=== PATIENT | female | born 1955 | race Caucasian/White ===

== ENCOUNTER 2019-02-17 15:17 | Outpatient (CLI) | payer OTHER ==
--- NOTE | 2019-02-17 16:01 | RAD ---
EXAM: XR Lumbar Spine Comp W Bending PROVIDED CLINICAL HISTORY: Low back pain. Bilateral leg numbness. COMPARISON: None FINDINGS: 6 views lumbar spine are provided. There is transitional vertebra at the lumbosacral junction. The ve rtebral body heights are within normal limits. No fracture or subluxation is seen involving the lumbar spine. Mild facet degenerative changes in the lower lumbar spine. IMPRESSION: Mild degenerative changes in lumbar spine without fracture or subluxation appreciated.
== END 2019-02-17 15:18 | disposition home or self-care (01) ==
LOC: BICRAD 15:17
PROVIDERS: ATTEND Family Medicine
DX: M54.5 Low back pain (principal); M47.816 Spondylosis without myelopathy or radiculopathy, lumbar region
CPT/HCPCS: 72100

== ENCOUNTER 2019-04-07 08:57 | Outpatient (CLI) | payer OTHER ==
--- NOTE | 2019-04-07 10:07 | MRI ---
LUMBAR SPINE MRI WITHOUT IV CONTRAST: HISTORY: Lumbar spine MRI without IV contrast. HISTORY: Degenerative disk disease. Low back pain with bilateral foot and leg numbness. FINDINGS: Conus medullaris region is unremarkable terminating at L1. Mild generalized disk desiccation changes and ligament and facet hypertrophic changes. T12-L1 disk: Unremarkable. L1-L2 disk: Unremarkable. L2-L3 disk: Unremarkable. L3-L4 disk: Unremarkable. L4-L5 disk: Unremarkable. L5-S1 disk: Mild disk bulging with some desiccation changes without significant canal, lateral reces s, or foraminal stenosis. No abnormal marrow signal. IMPRESSION: Unremarkable lumbar spine MRI. Disk desiccation changes and ligament and facet hypertrophic changes most marked at L5-S1 without canal, lateral recess, or foraminal stenosis. POS: TPC
== END 2019-04-07 08:58 | disposition home or self-care (01) ==
LOC: BICMRI 08:57
PROVIDERS: ATTEND Family Medicine
DX: M51.36 Other intervertebral disc degeneration, lumbar region (principal); M47.817 Spondylosis without myelopathy or radiculopathy, lumbosacral region; M51.27 Other intervertebral disc displacement, lumbosacral region
CPT/HCPCS: 72148

== ENCOUNTER 2019-05-26 13:39 | Outpatient (CLI) | payer OTHER ==
--- NOTE | 2019-05-26 20:16 | MRI ---
THORACIC SPINE MRI WITHOUT CONTRAST: 05/26/19 COMPARISON: None. HISTORY: Thoracic radiculitis. TECHNIQUE: multiplanar and multisequence MRI imaging of the thoracic spine obtained without contrast. FINDINGS: There is a 3.1 x 1.5 x 1.2 cm mass lesion centered at the T2 level. This mass appears intradural and extramedullary, with the thoracic cord demonstrating severe compression and displacement to the left. This mass lesion is isointense on T1 and T2 weighted imaging. No additional lesion is identified. No significant neural foraminal stenosis is seen at any level on either side. Sagittal STIR imaging demonstrates no focal area of osseous marrow edema. There is no anterolisthesis or retrolisthesis identified. IMPRESSION: T1 and T2 isointense mass lesion within the thoracic spine centered at the T2 level deviating the cor d to the left and severely compressing the cord. This is felt to represent an intradural extramedull samir tumor, favored to represent a meningioma. Recommend postcontrast imaging for full assessment. Code T POS: OFF
== END 2019-05-26 13:40 | disposition home or self-care (01) ==
LOC: BICMRI 13:39
PROVIDERS: ATTEND Specialist
DX: M54.14 Radiculopathy, thoracic region (principal); G95.9 Disease of spinal cord, unspecified
CPT/HCPCS: 72146

== ENCOUNTER 2019-06-11 05:41 | Inpatient (IN) | payer OTHER ==
[2019-06-11] MEDS ORDERED: ceFAZolin Sodium (SDC) 2 GM/100 ML BAG ONE (06:40)
[2019-06-11] MEDS ORDERED: Bacitracin Zinc Ointment 30 gm TUBE ONE (06:43)
[2019-06-11 06:48] LABS: #Eosinphils 0.2 thou/uL (0.0-0.7); #Lymphocytes 3.9 thou/uL (1.20-3.40); #Neutrophils 11.7 thou/uL (1.40-6.50); %Basophils 0.3 % (0.0-1.0); %Eosinophils 1.1 % (0.0-10.0); %Lymphocytes 23.4 % (21.0-51.0); %Monocytes 5.7 % (0.0-10.0); %Neutrophils 69.5 % (42.0-75.0); Hemoglobin 12.4 g/dL (12.0-16.0); Mean Corpuscular HGB CONC 34.3 g/dL (32.0-36.0); Mean Corpuscular Volume 87.4 fL (78.0-98.0); Mean Platelet Volume 7.2 fL (7.4-10.4); Platelet Count 347 thou/uL (130-400); RBC Distribution Width 12.6 % (11.5-14.5); Red Blood Cell (RBC) Count 4.12 mill/uL (4.20-5.40); White Blood Cell (WBC) Count 16.8 thou/uL (4.8-10.8)
[2019-06-11 07:05] LABS: Anion Gap 13 mmol/L (10-20); BUN (Urea Nitrogen) 22 mg/dL (9.8-20.1); Calc. Creatinine Clearance 0 mL/min (70-130); Calcium 9.9 mg/dL (7.8-10.44); Carbon Dioxide 25 mmol/L (23-31); Chloride 104 mmol/L (98-107); Estimated GFR-MDRD 84; Glucose 93 mg/dL (80-115); Potassium 4.1 mmol/L (3.5-5.1); Sodium 138 mmol/L (136-145)
[2019-06-11] MEDS ORDERED: SUGAMMADEX SODIUM 200 MG/2 ML VIAL ONE (07:11)
[2019-06-11] MEDS ORDERED: Fentanyl 250 MCG/5 ML VIAL ONE (07:11)
[2019-06-11] MEDS ORDERED: Phenylephrine HCL 10 MG/ML VIAL ONE (07:11)
[2019-06-11] MEDS ORDERED: Albumin 5% 500 ML ONE (07:12)
[2019-06-11] MEDS ORDERED: Ketamine 50 MG/ML (10ML VIAL) ONE (07:27)
[2019-06-11] MEDS ORDERED: Fentanyl 100 MCG/2 ML VIAL ONE ×2 (09:46→12:26)
[2019-06-11] MEDS ORDERED: Metoclopramide HCl 10 MG/2 ML VIAL ONE (10:08)
[2019-06-11] MEDS ORDERED: PROPOFOL 200 MG/20 ML VIAL ONE (10:08)
[2019-06-11] MEDS ORDERED: Dexamethasone 20 MG/5 ML VIAL ONE (10:08)
[2019-06-11] MEDS ORDERED: Rocuronium Bromide 10 MG/ML (10ML VIAL) ONE (10:08)
[2019-06-11] MEDS ORDERED: Vecuronium 10 MG VIAL ONE (10:08)
[2019-06-11] MEDS ORDERED: Ondansetron PF 4 MG/2 ML Vial ONE (10:08)
[2019-06-11] MEDS ORDERED: PHENYLEPHRINE-NS 100 MCG/ML 10 ML SYRINGE ONE (10:08)
[2019-06-11] MEDS ORDERED: Glycopyrrolate 0.2 MG/ML 5 ML SYRINGE ONE (10:08)
[2019-06-11] MEDS ORDERED: Lidocaine 1% PF 5 ML VIAL ONE (10:08)
[2019-06-11] MEDS ORDERED: PACU-Morphine 4MG/ML VIAL SLOW IVP PRN (11:16)
[2019-06-11] MEDS ORDERED: Promethazine HCl 25 MG/ML VIAL SLOW IVP PRN (11:16)
[2019-06-11] MEDS ORDERED: HYDROmorphone 2 MG/ML VIAL SLOW IVP PRN (11:16)
[2019-06-11] MEDS ORDERED: Morphine Sulfate 2 MG/ML SYRINGE SLOW IVP PRN (11:16)
[2019-06-11] MEDS ORDERED: Promethazine HCl 25 MG/ML VIAL IM PRN ×2 (11:16→13:41)
[2019-06-11] MEDS ORDERED: Ondansetron HCl/PF 4 MG/2 ML Vial IVP PRN (11:16)
[2019-06-11] MEDS ORDERED: HYDROmorphone 2 MG/ML VIAL ONE (12:02)
[2019-06-11] MEDS ORDERED: Ondansetron PF 4 MG/2 ML Vial IM PRN (13:41)
[2019-06-11] MEDS ORDERED: Promethazine 25 MG TAB PO PRN (13:41)
[2019-06-11] MEDS ORDERED: Mag-Al 1200 mg/1200 mg/30 ML UDCUP PO PRN (13:41)
[2019-06-11] MEDS ORDERED: diphenhydrAMINE 25 MG CAP PO PRN (13:41)
[2019-06-11] MEDS ORDERED: diphenhydrAMINE 50 MG/ML VIAL IVP PRN (13:41)
[2019-06-11] MEDS ORDERED: Morphine 4 MG/ML VIAL SLOW IVP PRN (13:41)
[2019-06-11] MEDS ORDERED: HYDROcodone/Acetaminophen 10/325 mg Tablet PO PRN (13:41)
[2019-06-11 13:49] VITALS: BMI 22.9
[2019-06-11] MEDS: Sodium Chloride 0.9% 1,000 ML IV SCH (14:01)
[2019-06-11] MEDS: CEFAZOLIN 2 GM in Premix Bag 1 BAG IVPB SCH ×2 (14:17→21:47)
--- NOTE | 2019-06-11 15:47 | OP ---
DATE OF PROCEDURE: 06/11/2019 DESIGN TECH: Sonia West PA-C PROCEDURES PERFORMED: C7 through T3 laminectomy, removal of spinal cord tumor. DESCRIPTION OF PROCEDURE: The patient was brought to the operating room and intubated. She was rolled in a prone position on gel-filled chest rolls. Her head was fixed in a Mariaelena sewer head in neutral position. An incision was made in the midline exposing C6 through T4 and her level was confirmed by x-ray. We performed complete T3, complete T2, complete T1, and complete T7 laminectomies. There was extensive venous epidural bleeding throughout the case, presumably related to distention from the tumor. The epidural venous bleeding was quite difficult to control, ultimately controlled with a combination of coagulation and Gelfoam. Next, the dura was opened in the midline and the tumor was immediately evident. We circumferentially went around the tumor, debulking it and it did have a dural attachment posterolaterally. It was not emanating from any nerves and no nerves were sacrificed in the course of removal. The tumor was removed in its entirety and sent for pathologic examination. The dural attachment was extensively coagulated. The intradural space was then extensively irrigated and the dura was closed in watertight fashion with a running Prolene suture. This was reinforced with DuraSeal fibrin sealant. Next, the wound was extensively irrigated and MAC hemostasis was secured. Vancomycin powder was applied and the wound was then closed in anatomic layers. Job ID: [id number]
[2019-06-11] MEDS: Dexamethasone 4 MG TAB PO SCH ×3 (16:39→23:43)
[2019-06-11] MEDS: traMADol HCl 50 MG TAB PO PRN (17:16)
[2019-06-11] MEDS: Dexamethasone 4 mg/ml Vial SLOW IVP SCH ×2 (17:16→23:30)
--- NOTE | 2019-06-11 17:28 | CON ---
DATE OF CONSULTATION: 06/11/2019 HISTORY OF PRESENT ILLNESS: Ms. Bagley is a 63-year-old female, who underwent a C7-T3 laminectomy today with removal of a tumor. She is transferred to the critical care unit for observation. She is still very somnolent from surgery when I evaluated her. PAST MEDICAL HISTORY: Unknown. FAMILY HISTORY: Unknown. SOCIAL HISTORY: Unknown. REVIEW OF SYSTEMS: 10 point review of systems completed, not accurately obtainable at this point. PHYSICAL EXAMINATION: GENERAL: She is in no distress. As mentioned, somnolent. VITAL SIGNS: She is afebrile. Heart rate 53, respiratory rate was in the teens , and blood pressure 113/62. NECK: She had no anterior cervical lymphadenopathy. Her trachea is in the midline. HEENT: pupils react. LUNGS: Clear. HEART: Regular rhythm. S1 and S2 are normal. ABDOMEN: Soft and nontender without masses. EXTREMITIES: Without clubbing, cyanosis, or edema. LABORATORY DATA: White count 16.8, hemoglobin 12.4, platelets 347. Electrolytes are normal. Glucose was 93 and calcium 9.9. IMPRESSION: Status post resection of a spinal tumor with a C7 to T3 laminectomy. PLAN: She appears stable currently in the Critical Care Unit. We will be happy to follow while she is in the ICU. This is a 70 minute consult, with greater than 50% of time spent on unit coordinating care. Job ID: [id number] MTDD
[2019-06-11] MEDS: HYDROcodone/Acetaminophen 10/325 mg Tablet PO PRN ×2 (20:22→23:25)
[2019-06-12] MEDS: Dexamethasone 4 mg/ml Vial SLOW IVP SCH ×2 (00:12→06:19)
[2019-06-12] MEDS: Sodium Chloride 0.9% 1,000 ML IV SCH ×2 (02:30→17:57)
[2019-06-12] MEDS: HYDROcodone/Acetaminophen 10/325 mg Tablet PO PRN ×4 (03:04→20:39)
[2019-06-12] MEDS: CEFAZOLIN 2 GM in Premix Bag 1 BAG IVPB SCH ×3 (05:04→21:59)
[2019-06-12] MEDS: Dexamethasone 4 MG TAB PO SCH ×4 (05:05→21:58)
[2019-06-12] MEDS: Famotidine/PF 20 mg/2ml Vial SLOW IVP SCH ×2 (08:33→21:59)
--- NOTE | 2019-06-12 08:54 | PRG ---
DATE OF SERVICE: 06/12/2019 SUBJECTIVE: The patient is a 63-year-old female who was recently found in our office to have a large spinal tumor intradural extramedullary at the approximately T3 level. She underwent C7 through T3 laminectomy with resection of the spinal cord tumor. She is now postoperative day #1. She was transferred to the ICU and monitored closely overnight. She reports she is having some dysesthesias in the right leg and slight weakness. She was able to stand at the side of the bed on her own without any difficulty. She initially had some difficulty urinating, but this has improved overnight, and she is now urinating without any difficulty. She was able to tolerate a small amount of Jell-O p.o. last night and reports she feels like she can try to eat breakfast this morning. She reports some pain across the top of the shoulders and posterior cervical spine region, but this is well controlled with p.o. [place]. She had approximately 130 out from the JUSTYNA last night. There is some dark red blood, currently in the . Incision is otherwise not having any issues. OBJECTIVE: GENERAL: On exam this morning, the patient is awake, alert, in no acute distress. EXTREMITIES: She has free active range of motion of the upper extremities and 5/5 strength throughout. In the lower extremities, she is slightly weak over the right proximal leg, but she is able to lift this and dorsiflex, plantar flex, flex and extend the knee without any significant difficulty. Incision is clean, dry, and intact. The patient is doing well, and I plan to transition her to the Med/Surg floor today. I will begin to taper her Decadron, and I will change it over to p.o. dosing. We will continue physical therapy, occupational therapy, and I placed a Rehab screen. I anticipate the need for inpatient rehab at discharge. Job ID: [id number]
--- NOTE | 2019-06-12 09:00 | PRG ---
DATE OF SERVICE: 06/12/2019 SUBJECTIVE: Yany Bagley had a good night. She has no complaints. Surprisingly, she denies even having neck discomfort. OBJECTIVE: VITAL SIGNS: Blood pressure 118/62, heart rates in the 60s, respiratory rates in the teens, oximetry is 97%. LUNGS: Clear. HEART: Regular rhythm. S1 and S2 are normal. ABDOMEN: Soft and nontender. EXTREMITIES: Without edema. NEURO: She moves all 4 extremities equally. IMPRESSION: Status post resection of a paraspinous mass via multilevel laminectomy. She appears to be stable at this time. She probably could be transferred out of the Critical Care Unit. We will sign off on transfer. Job ID: [id number]
--- NOTE | 2019-06-12 21:31 | PRG ---
DATE OF SERVICE: 06/12/2019 Ms. Bagley is doing quite well postoperative day #1. She reports subjective increase in dysesthesia in the right leg and perhaps a subjective increase in weakness, but there are no objective findings. She has been walking with physical therapy, and her pain is well controlled. I am optimistic for continued progress. 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 I expect she would do well with inpatient rehab and this evaluation is underway. Job ID: [id number]
[2019-06-13] MEDS: Sodium Chloride 0.9% 1,000 ML IV SCH ×2 (05:37→23:32)
[2019-06-13] MEDS: CEFAZOLIN 2 GM in Premix Bag 1 BAG IVPB SCH ×3 (05:40→21:30)
[2019-06-13] MEDS: traMADol HCl 50 MG TAB PO PRN ×2 (06:44→18:13)
[2019-06-13] MEDS: Famotidine/PF 20 mg/2ml Vial SLOW IVP SCH ×2 (09:49→21:29)
[2019-06-13] MEDS: Dexamethasone 1 MG TAB PO SCH ×3 (09:49→21:29)
[2019-06-13] MEDS: Milk Of Magnesia 30 ML UDCUP PO PRN (09:49)
[2019-06-14] MEDS: Sodium Chloride 0.9% 1,000 ML IV SCH ×2 (04:56→08:02)
[2019-06-14] MEDS: CEFAZOLIN 2 GM in Premix Bag 1 BAG IVPB SCH ×3 (05:26→21:03)
[2019-06-14] MEDS: Milk Of Magnesia 30 ML UDCUP PO PRN ×2 (05:28→20:59)
[2019-06-14] MEDS: Famotidine/PF 20 mg/2ml Vial SLOW IVP SCH ×2 (08:57→20:58)
[2019-06-14] MEDS: Dexamethasone 1 MG TAB PO SCH ×3 (08:57→20:58)
[2019-06-14] MEDS: traMADol HCl 50 MG TAB PO PRN ×2 (09:08→21:40)
[2019-06-14] MEDS: Polyethylene Glycol 3350 17 GM Packet PO SCH (09:43)
--- NOTE | 2019-06-14 09:50 | PRG ---
DATE OF SERVICE: 06/14/2019 Ms. Bagley is status post resection of spinal tumor. She is doing quite well. She reports her pain has dramatically improved today as compared to yesterday. Her drain has had minimal output and can be removed. She has been mobilizing with a walker. Her right leg remains weak, but she feels like it has also improved as compared to her date of admission. She does report posterior cervical neck pain, which is expected for the next several days to weeks. She has been somewhat gun-shy about taking her narcotic medications, but I have encouraged her to take those as needed in order to facilitate her ability to mobilize. We are awaiting on rehab approval, at which time she can transfer at any time. She also reports some bowel distention. She had milk of magnesia yesterday. We will likely add MiraLAX to that today in order to get her bowel movement underway. Job ID: [id number]
[2019-06-14] MEDS: tiZANidine HCl 4 MG TAB PO PRN (20:50)
[2019-06-14] MEDS: Atorvastatin Calcium 10 MG TAB PO SCH (20:58)
--- NOTE | 2019-06-15 07:15 | PRG ---
DATE OF SERVICE: 06/13/2019 Ms. 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 She reports that her pain is minimal and present in her upper back as to be expected, which is probably incisional in nature. She has some new numbness in her leg, which is new after surgery, but is already improving. From functional standpoint, she has difficulty with gait, but she was significantly myelopathic before surgery, this will likely require extensive and aggressive physical therapy to improve upon. The drain output was 120 yesterday in the evening and 170 mL overnight, so we will do this for now with antibiotics continued q.8 hours. We can adjust her pain medications though she would like to start tapering back. She does have tramadol ordered so we can always just take the tramadol and regular Tylenol with IV morphine as needed. I would like to see her ambulating a couple of times a shift as well as working with PT. We will reach out to the director of rehabilitation to see about her placement. Job ID: [id number]
[2019-06-15] MEDS: tiZANidine HCl 4 MG TAB PO PRN ×2 (07:58→21:28)
[2019-06-15] MEDS: Famotidine/PF 20 mg/2ml Vial SLOW IVP SCH (07:58)
[2019-06-15] MEDS: Polyethylene Glycol 3350 17 GM Packet PO SCH (07:58)
[2019-06-15] MEDS: Milk Of Magnesia 30 ML UDCUP PO PRN ×2 (07:58→21:28)
[2019-06-15] MEDS: Dexamethasone 1 MG TAB PO SCH ×2 (07:59→21:24)
[2019-06-15] MEDS: Sodium Chloride 0.9% 1,000 ML IV SCH (07:59)
[2019-06-15] MEDS: Famotidine 20 MG TAB PO SCH ×2 (08:57→21:25)
--- NOTE | 2019-06-15 09:41 | PRG ---
DATE OF SERVICE: 06/15/2019 SUBJECTIVE: The patient is postoperative day #4, status post cervical laminectomy and spinal tumor resection. During her admission course, she has been mobilizing with the assistance of Physical Therapy. She continues complaints of dysesthesias and weakness in right leg and this has remained unchanged. We have been tapering her Decadron. Her JUSTYNA drain has since been removed. OBJECTIVE: GENERAL: On exam, she is awake, alert, in no acute distress. EXTREMITIES: She has some slight weakness in the right lower extremity more proximally when lifting off the bed. She otherwise appears to have good strength with knee flexion, extension, dorsiflexion, and plantar flexion. Her incision is clean, dry, intact. PLAN: We will continue to mobilize appropriately. Rehab screen is completed, and we are currently waiting on insurance authorization. We will continue to follow closely. Job ID: [id number]
--- NOTE | 2019-06-15 09:42 | PRG ---
DATE OF SERVICE: 06/15/2019 The patient continues to do quite well. She has persistent neurologic deficits of bilateral myelopathy in the legs and the right side weakness and numbness has been exacerbated by the recent surgery. She is ambulating quite well with a walker. Her pain remains an issue, but does seem reasonably controlled on narcotic pain medicine. From medical perspective, she is ready for transfer to rehab. Plans are being made in this regard. Job ID: [id number]
[2019-06-15 15:26] LABS: Actual Bicarbonate (HCO3a) 21.9 mEq/L (22-28); Analyzer IN Cardio OR; Base Excess (BEa) -2.1 mEq/L (-2.0 to +3.0); CO2 Tension 34.2 mmHg (35.0-45.0); Calcium, Ionized 1.08 mmol/L (1.12-1.30); Carboxyhemoglobin (COHb) 0.3 gm% (0.0-3.0); Hemoglobin (Hb) 9.9 g/dL (12.0-16.0); pH, Arterial 7.42 (7.35-7.45)
[2019-06-15 15:27] LABS: Actual Bicarbonate (HCO3a) 22.1 mEq/L (22-28); Analyzer IN Cardio OR; Base Excess (BEa) -1.5 mEq/L (-2.0 to +3.0); CO2 Tension 32.8 mmHg (35.0-45.0); Calcium, Ionized 1.09 mmol/L (1.12-1.30); Carboxyhemoglobin (COHb) 0.3 gm% (0.0-3.0); Hemoglobin (Hb) 9.3 g/dL (12.0-16.0); O2 Tension (PaO2) 218.9 mmHg (> 80.0); Potassium - ABG Lab 4.03 mmol/L (3.70-5.30); pH, Arterial 7.45 (7.35-7.45)
[2019-06-15 15:31] LABS: Puncture Site ALINE
[2019-06-15 15:32] LABS: Puncture Site ALINE
[2019-06-15] MEDS: Atorvastatin Calcium 10 MG TAB PO SCH (21:25)
[2019-06-16] MEDS: traMADol HCl 50 MG TAB PO PRN ×2 (04:14→22:52)
[2019-06-16] MEDS: Sodium Chloride 0.9% 1,000 ML IV SCH ×2 (04:18→07:37)
[2019-06-16] MEDS ORDERED: Fleet Enema 133 ML BOT FS PRN (07:34)
[2019-06-16] MEDS ORDERED: Magnesium Citrate 300 ML BOT PO PRN (07:34)
--- NOTE | 2019-06-16 08:07 | PRG ---
DATE OF SERVICE: 06/16/2019 SUBJECTIVE: The patient continues to do well on the floor. She is mobilizing with Physical Therapy. She has persistent right leg weakness and dysesthesias, but these are unchanged. She is also complaining of some slight numbness and tingling in the left foot, but no weakness on that side. She has had some constipation issues and has tried MiraLAX and milk of magnesia. She is also reporting the muscle relaxer is making her quite drowsy. OBJECTIVE: GENERAL: On exam this morning, she is awake, alert, in no acute distress. EXTREMITIES: She is slightly weak diffusely in the right leg. There is no focal weakness on the left side. She has no reflex asymmetry. Her incision is clean, dry, and intact. PLAN: We will plan to add magnesium citrate as well as p.r.n. Fleet Enema x1 as needed for constipation. I will change her muscle relaxer from tizanidine to Flexeril 5 mg p.o. tab q.8 p.r.n. Continue to mobilize appropriately, and I anticipate the patient to rehab in the next 1 to 2 days, and she is ready at any time. Job ID: [id number]
[2019-06-16] MEDS: Milk Of Magnesia 30 ML UDCUP PO PRN (08:32)
[2019-06-16] MEDS: Dexamethasone 1 MG TAB PO SCH ×2 (08:32→21:58)
[2019-06-16] MEDS: Polyethylene Glycol 3350 17 GM Packet PO SCH (08:33)
[2019-06-16] MEDS: Famotidine 20 MG TAB PO SCH ×2 (08:33→21:58)
[2019-06-16] MEDS: Cyclobenzaprine 10 MG TAB PO PRN ×2 (08:39→22:06)
[2019-06-16] MEDS: Atorvastatin Calcium 10 MG TAB PO SCH (21:58)
--- NOTE | 2019-06-16 22:38 | EKG ---
Test Reason : PREOP Blood Pressure : / mmHG Vent. Rate : 053 BPM Atrial Rate : 053 BPM P-R Int : 122 ms QRS Dur : 096 ms QT Int : 446 ms P-R-T Axes : 065 061 061 degrees QTc Int : [address] abnormality, possible digitalis effect Abnormal ECG No previous ECGs available Confirmed by Hai SMITH ([id number]) on 06/16/2019 10:38:12 PM Referred By: MICKI Confirmed By:Hai SMITH
[2019-06-17] MEDS: Sodium Chloride 0.9% 1,000 ML IV SCH ×3 (03:07→20:33)
[2019-06-17] MEDS: Cyclobenzaprine 10 MG TAB PO PRN ×2 (08:43→20:31)
[2019-06-17] MEDS: Famotidine 20 MG TAB PO SCH ×2 (08:43→20:28)
[2019-06-17] MEDS: Polyethylene Glycol 3350 17 GM Packet PO SCH (08:45)
[2019-06-17] MEDS ORDERED: Dexamethasone 1 MG TAB PO SCH (09:00)
[2019-06-17] MEDS: traMADol HCl 50 MG TAB PO PRN ×2 (11:12→20:30)
[2019-06-17] MEDS: Atorvastatin Calcium 10 MG TAB PO SCH (20:28)
[2019-06-18] MEDS: Sodium Chloride 0.9% 1,000 ML IV SCH (09:11)
[2019-06-18] MEDS: Famotidine 20 MG TAB PO SCH (09:16)
[2019-06-18] MEDS: Polyethylene Glycol 3350 17 GM Packet PO SCH (09:16)
[2019-06-18] MEDS: Cyclobenzaprine 10 MG TAB PO PRN ×2 (09:21→15:38)
[2019-06-18 11:59] VITALS: BP 130/60; TEMP 97.5
[2019-06-18] MEDS: traMADol HCl 50 MG TAB PO PRN (13:29)
--- NOTE | 2019-06-19 03:00 | DIS ---
DATE OF ADMISSION: 06/11/2019 DATE OF DISCHARGE: 06/18/2019 The patient is a 63-year-old female, who was recently evaluated in our office for newly found spinal tumor. The patient underwent a C7-T3 laminectomy with spinal tumor resection on 06/11/2019. Following surgery, she was monitored overnight in the ICU and then transitioned to the Med/Surg floor. She has developed some new right leg weakness and dysesthesias since surgery. She has been working with Physical Therapy and Occupational therapy and is ambulating with a walker throughout the department. They both agree that she would benefit significantly from inpatient rehabilitation. The patient's pain has otherwise been well controlled with p.o. medication, she is tolerating a regular diet. She is voiding and having normal bowel movements. We will plan to transition from inpatient admission to inpatient rehabilitation at discharge. I have discussed home care precautions and we will follow up with the patient in 2 weeks for recheck. Job ID: [id number]
== END 2019-06-18 15:30 | DRG 29 ==
LOC: SURG A 05:41 → CCU 13:10 → SJJU 06-12 14:28
PROVIDERS: ADMIT Neurological Surgery; ATTEND Neurological Surgery
PROC: 00NW0ZZ Release Cervical Spinal Cord, Open Approach (ICD-10-PCS; principal; 2019-06-11)
PROC: 00BX0ZX Excision of Thoracic Spinal Cord, Open Approach, Diagnostic (ICD-10-PCS; 2019-06-11)
DX: D32.1 Benign neoplasm of spinal meninges (principal); G95.89 Other specified diseases of spinal cord; K59.00 Constipation, unspecified; E78.5 Hyperlipidemia, unspecified; Z90.710 Acquired absence of both cervix and uterus
CPT/HCPCS: 76000; 80048; 82805; 85025; 88307; 93005; 93010; J0690; J1100; J1170; J2001; J2270; J2370; J2405; J2704; J2765; J3010; J3370; J8540; P9045; S0028

== ENCOUNTER 2020-08-23 09:39 | Outpatient (CLI) | payer OTHER ==
--- NOTE | 2020-08-23 11:46 | MRI ---
Exam: MRI thoracic spine with and without contrast COMPARISON: 05/28/2019, 05/26/2019 HISTORY: Spinal cord tumor. Patient had surgery one year ago. Follow-up exam. No new symptoms. TECHNIQUE: Thoracic spine MRI is performed with and without intravenous gadolinium administration. Mu lti sequential, multiplanar imaging is formed FINDINGS: There is appropriate T1 marrow signal intensity of the thoracic vertebra. Thoracic spine vertebral ruben dy height is maintained. No fracture. There are stable hemangiomas at T2, T3, T5, T8 and T10. No significant STIR hyperintensity to suggest vertebral body edema or ligamentous injury. Postcontrast images do not demonstrate any abnormal enhancement of the vertebral bodies. Throughout the thoracic spine, neural foramina are patent. Conus medullaris terminates at the superior aspect of T12. Chronic changes in the lung apices. No signal abnormalities in the mediastinum. No signal abnormality in the paraspinal muscles or solid organs. Throughout the thoracic spine, no significant posterior disc abnormality. Stable mild disc desiccatio n in the upper thoracic spine. No significant central canal stenosis due to degenerative change. There is deformity of the thoracic cord starting at the superior aspect of T1 and extending to the mi d T3 level. There is leftward displacement of the thoracic cord. There is no evidence of cord malacia. There does not appear to be any intramedullary lesion. There is no abnormal enhancement of t he thoracic cord. IMPRESSION: 1. No evidence of residual dural based mass which has been pathologically proven to be a meningioma. 2. Stable mass effect upon the thoracic cord. No cord signal abnormality. Transcribed Date/Time: 08/23/2020 1:14 PM
== END 2020-08-23 09:40 | disposition home or self-care (01) ==
LOC: BICMRI 09:39
PROVIDERS: ATTEND Neurological Surgery
DX: D49.7 Neoplasm of unspecified behavior of endocrine glands and other parts of nervous system (principal); D32.9 Benign neoplasm of meninges, unspecified; G95.89 Other specified diseases of spinal cord
CPT/HCPCS: 72157; 82565

== ENCOUNTER 2023-02-07 08:27 | Outpatient (CLI) | payer OTHER | END 2023-02-07 08:28 | disposition home or self-care (01) | LOC: BICMAMMO 08:27 | PROVIDERS: ATTEND Student in an Organized Health Care Education/Training Program | DX: Z13.820 Encounter for screening for osteoporosis (principal); R92.8 Other abnormal and inconclusive findings on diagnostic imaging of breast; M85.88 Other specified disorders of bone density and structure, other site; M85.851 Other specified disorders of bone density and structure, right thigh; M85.852 Other specified disorders of bone density and structure, left thigh; N60.22 Fibroadenosis of left breast | CPT/HCPCS: 77080; G0279 ==